=== PATIENT | female | born 1970 | race Caucasian/White ===

== ENCOUNTER 2023-03-26 18:49 | Emergency (ER) | payer SELFPAY ==
[2023-03-26 20:06] LABS: SARS-CoV-2 NAA Rapid Test Not Detected (NotDetected)
== END 2023-03-26 21:04 | disposition left against medical advice (07) ==
LOC: CSHERS 18:49
DX: Z53.21 Procedure and treatment not carried out due to patient leaving prior to being seen by health care provider (principal)